=== PATIENT | male | born 1970 | race Caucasian/White ===

== ENCOUNTER 2018-02-17 21:32 | Emergency (ER) | payer MEDICARE ==
[~2018-02-17] VITALS: Ht 180.3 cm; Wt 65.8 kg
[~2018-02-17 21:32] MED LIST: DEPAKOTE 250MG250 M1 PO; DILANTIN100 MG; FLOMAX PO; KEFLEX500 MG PO; LEVAQUIN 750 M750 MG PO; MEDROLDOSEPACK PO; MOBIC7.5 M1 PO; NEURONTIN 300300 M1 PO; NORCO 5-325 TA1 EACH PO; ONFI10 MG PO; PEPCID20 MG PO; PERCOCET 10-321 EACH PO; PERCOCET 5-3251 EACH PO; PROAIR HFA8.5 GM; TESSALON PERLE100 MG PO; TRIAMCINOLONE 080 G3 TP; TRIAMCINOLONE A80 G2 TOP; VIMPAT1 EACH PO; ZOFRAN ODT4 MG PO
[2018-02-17 22:03] VITALS: BP 114/86
[2018-07-31] MEDS ORDERED: NORCO 5-325 TA1 EACH PO (08:23)
[2018-07-31] MEDS ORDERED: DILANTIN30 MG PO (13:02)
[2018-07-31] MEDS ORDERED: B-12500 MCG PO (13:07)
[2018-07-31] MEDS ORDERED: AMITRIPTYLINE H25 M2 PO (13:07)
[2018-07-31] MEDS ORDERED: D3 (13:08)
[2018-07-31] MEDS ORDERED: ALEVE220 MG PO (13:08)
== END 2018-02-17 22:04 | disposition home or self-care (01) ==
LOC: M.ERS 21:32
DX: R21 Rash and other nonspecific skin eruption (principal); Z88.8 Allergy status to other drugs, medicaments and biological substances; Z91.041 Radiographic dye allergy status

== ENCOUNTER 2018-03-18 14:24 | Emergency (ER) | payer MEDICARE ==
[~2018-03-18] VITALS: Ht 180.3 cm; Wt 70.3 kg
[2018-03-18 15:55] VITALS: BP 96/68
[2018-07-31] MEDS ORDERED: NORCO 5-325 TA1 EACH PO (08:23)
[2018-07-31] MEDS ORDERED: DILANTIN30 MG PO (13:02)
[2018-07-31] MEDS ORDERED: AMITRIPTYLINE H25 M2 PO (13:07)
[2018-07-31] MEDS ORDERED: B-12500 MCG PO (13:07)
[2018-07-31] MEDS ORDERED: D3 (13:08)
[2018-07-31] MEDS ORDERED: ALEVE220 MG PO (13:08)
== END 2018-03-18 16:00 | disposition home or self-care (01) ==
LOC: M.ERS 14:24
DX: Z71.1 Person with feared health complaint in whom no diagnosis is made (principal); Z90.89 Acquired absence of other organs; Z88.8 Allergy status to other drugs, medicaments and biological substances; Z91.041 Radiographic dye allergy status

== ENCOUNTER 2018-06-28 09:58 | Emergency (ER) | payer MEDICARE, MEDICAID ==
[~2018-06-28] VITALS: Ht 177.8 cm; Wt 68.0 kg
[2018-06-28] MEDS ORDERED: CENTRUM SILVER1 EAC2 PO (10:09)
[2018-06-28] MEDS ORDERED: VITAMIN C100 MG PO (10:09)
[2018-06-28] MEDS ORDERED: NORCO 5-325 TA1 EACH PO (10:33)
[2018-06-28 10:55] VITALS: BP 116/79
[2018-07-31] MEDS ORDERED: NORCO 5-325 TA1 EACH PO (08:23)
[2018-07-31] MEDS ORDERED: DILANTIN30 MG PO (13:02)
[2018-07-31] MEDS ORDERED: AMITRIPTYLINE H25 M2 PO (13:07)
[2018-07-31] MEDS ORDERED: B-12500 MCG PO (13:07)
[2018-07-31] MEDS ORDERED: D3 (13:08)
[2018-07-31] MEDS ORDERED: ALEVE220 MG PO (13:08)
== END 2018-06-28 10:56 | disposition home or self-care (01) ==
LOC: M.ERS 09:58
DX: M79.672 Pain in left foot (principal); Z91.041 Radiographic dye allergy status; Z91.048 Other nonmedicinal substance allergy status; Z98.890 Other specified postprocedural states

== ENCOUNTER → 2018-07-31 | Outpatient (CLI) | payer MEDICARE ==
[~2018-07-31] MED LIST changes: +ALEVE220 MG PO; +AMITRIPTYLINE H25 M2 PO; +B-12500 MCG PO; +CENTRUM SILVER1 EAC2 PO; +D3; +DILANTIN30 MG PO; +VITAMIN C100 MG PO
--- NOTE | ~2018-07-31 | H ---
[place] [address] HISTORY AND PHYSICAL Name: ADA WALTERS Room: [facility] Ayse.#: [id number] Admission: 07/31/18 Attend Phys: Lori Hopkins MD Discharge: Date of : 72 Report #: [id number] THIS REPORT FOR: //name// CC: Luís Hopkins DATE OF SERVICE: 07/31/2018 PRIMARY CARE PHYSICIAN: Luís Remy DO HISTORY: The patient is a 47-year-old gentleman who has been referred to the pain clinic for evaluation of foot pain. The patient states that he has been having pain and discomfort in his left and right foot. Pain has been problematic for about a year. States that he has been having pain for the left and right foot pain with a shocking sensation. States that he kicked his left foot on the bedpost and the right foot has been problematic. He has noticed some constant electrical shooting pain, which only goes away after he places pressure on the fourth toe and extends it. DICTATION ENDS HERE By: [id number]. Doroteo Hopkins MD /[facility]
--- NOTE | ~2018-07-31 | PAINCON ---
[address] [address] PAIN MANAGEMENT CONSULTATION Name: ADA WALTERS Room: [facility] Ayse.#: [id number] Admission: 07/31/18 Attend Phys: Lori Hopkins MD Discharge: Date of : 72 Report #: [id number] THIS REPORT FOR: //name// CC: Luís Hopkins PRIMARY CARE PHYSICIAN: Luís Remy DO DATE OF SERVICE: 07/31/2018 HISTORY: The patient is a 47-year-old gentleman who has been referred to the pain clinic for evaluation of foot pain. The patient states that he has been having pain and discomfort in his left and right foot. Pain has been problematic for about a year. States that he has been having pain for the left and right foot pain with a shocking sensation. States that he kicked his left foot on the bedpost and the right foot has been problematic. He has noticed some constant electrical shooting pain, which only goes away after he places pressure on the fourth toe and extends it. He states that it feels as though a battery is attached to his foot and current running into his toe. Notes that the pain improves somewhat when he holds on to the fourth toe and extends it. He is having some difficulty sleeping because of the pain. Pain radiates up his left leg across his groin area and down into the right foot. 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 He has undergone cortisone shots in this area and noted some benefit from that. He continues to use gabapentin and has used as much as 600 mg t.i.d. He has also used hydrocodone. CURRENT MEDICATIONS: Depakote 250 mg, gabapentin 300 mg, Dilantin 100 mg, Dilantin 30 mg, amitriptyline 25 mg. CBD oil to the affected toe. ALLERGIES: IODINE. PAST MEDICAL HISTORY: Anxiety, epilepsy, skin cancer of the lip, kidney stones, and chronic back pain. PAST SURGICAL HISTORY: Fractured ankle, collar bones repair, left wrist surgery, L5/L4 laminectomy, vagal nerve stimulator placement, vagal nerve stimulator removal, tonsillectomy. SOCIAL HISTORY: He is not working. REVIEW OF SYSTEMS: Generally good health, has noted some weight change, decrease in appetite, wears glasses, has had kidney stones continues to have back pain, history of convulsions/seizures with numbness and tingling [place] [address] PAIN MANAGEMENT CONSULTATION Name: ADA WALTERS [id number] Admission: 07/31/18 Attend Phys: Lori Hopkins MD Discharge: Date of : 72 Report #: [id number] PAIN CLINIC ASSESSMENT/OSTEOARTHRITIS: 1. The patient has some arthritic change in his low back area, has had back surgery. The patient is not been treated for rheumatoid arthritis. 2. Height 5 feet 10 inches, weight 150 pounds, BMI is 21. 3. Vital signs: Blood pressure 97/62, heart rate 64, respiratory rate 16, room air saturation is 98%, and temperature 97.7. 4. Pain intensity can be 6-7. 5. Fall risk. The patient has not fallen in the last 3 months. 6. Blood thinner. The patient is not on a blood thinning medication. 7. History of hypertension. The patient is not being treated for hypertension. 8. Opioid therapy greater than 6 weeks. The patient is using hydrocodone medication. 9. Risk assessment tool. 10. Functional assessment tool. 11. Recreational drug use. The patient denies use of recreational drugs at this juncture. 12. Tobacco: The patient denies use of tobacco. 13. Alcohol: The patient denies frequent use of alcoholic beverages. PHYSICAL EXAMINATION: GENERAL: The patient is a well-developed, well-nourished white male. Appears his stated age. He is alert and oriented x 3. Affect is appropriate. Speech is fluent. HEENT: Normocephalic, atraumatic. Extraocular muscles intact. Sclerae nonicteric. Mucous membranes are moist. NECK: Without adenopathy or JVD. LUNGS: Clear to auscultation. HEART: Regular rate. ABDOMEN: Nontender. Bowel sounds present. EXTREMITIES: Upper extremity muscle strength is judged to be 5/5 for the major muscle groups. Lower extremity muscle strength is judged to be 5/5 for the major muscle groups. Deep tendon reflexes are +1 at the biceps and trace at the knees bilaterally. Left foot shows normal skin texture, normal turgor. Color appears appropriate, capillary refill is about 2-2.5 seconds. Well-healed scar in the area of the fourth toe. The patient states that when he does feel the pain, it radiates from his foot up into the posterior portion of his leg across the groin area and down into the right leg as well. The patient states that if he has this pain and if he extends the fourth toe that the pain will soon subside. IMPRESSION: 1. History of chronic pain, left toe greater than a year duration. 2. Anxiety. 3. Epilepsy. 4. Skin cancer of the lip. 5. Kidney stones. [address] [place] [address] PAIN MANAGEMENT CONSULTATION Name: ADA WALTERS Room: [facility]#: [id number] Admission: 07/31/18 Attend Phys: Lori Hokpins MD Discharge: Date of : 72 Report #: [id number] 6. Chronic back pain. RECOMMENDATIONS: We discussed treatment option with the patient. We will have the patient try a TENS unit. He will go for instructions to the physical therapist. He will also try an application of 0.5% lidocaine to the affected toe. He will use RectiCare and apply it 2 to 3 times daily and especially if the patient notes pain and discomfort. He will return to the pain clinic where we will consider injection of the affected toe. As you could imagine this is somewhat of a unique presentation. Hopefully, with injections and medications, we can improve the patient's chronic pain problem. We would like to thank you for letting us participate in his care. We hope he continues to improve. By: [id number]. Doroteo Hopkins MD /[facility]let
== END ==
LOC: M.PC 04:56
DX: M79.671 Pain in right foot (principal); M79.672 Pain in left foot

== ENCOUNTER 2018-08-02 18:21 | Emergency (ER) | payer MEDICARE ==
[~2018-08-02] VITALS: Ht 177.8 cm; Wt 68.0 kg
[2018-08-02 19:21] VITALS: BP 107/68
== END 2018-08-02 19:22 | disposition home or self-care (01) ==
LOC: M.ERS 18:21
DX: F45.8 Other somatoform disorders (principal); Z91.041 Radiographic dye allergy status; Z88.8 Allergy status to other drugs, medicaments and biological substances; Z98.890 Other specified postprocedural states

== ENCOUNTER → 2018-08-28 | Outpatient (CLI) | payer MEDICARE ==
--- NOTE | ~2018-08-28 | PAINCON ---
[address] [address] PAIN MANAGEMENT CONSULTATION Name: WALTERSADA NBA Room: [facility] Usha#: [id number] Admission: 08/28/18 Attend Phys: Lori Hopkins MD Discharge: Date of : 72 Report #: [id number] THIS REPORT FOR: //name// CC: Luís Hopkins DATE OF SERVICE: 08/28/2018 HISTORY: The patient is a 47-year-old gentleman who has been seen in the Pain Clinic. He continues to have bilateral foot pain, left greater than right. As you may recall, the patient has had Brothers's neuroma on the third toe. He has had surgery on this toe. The patient states that he bumped his left fourth toe. Since that time, he has been having pain, which is quite problematic. States that it is a very severe pain that wakes him from sleep. Notes that the pain can gravitate and go up his left leg, across the groin and down involving the right foot. He feels that there is an electric current going to this area. Describes it as quite painful. Pain can be worse at night. The patient finds it difficult to score his pain level. He notes that the pain improves if he is having the discomfort and if he takes the distal portion of his fourth toe, if he straighten it out. The pain can decrease and he has less pain radiating up his leg across his groin and down into the contralateral side. Has used gabapentin. Was taking gabapentin 1800 mg daily. Did not notice a significant improvement in his pain. Does continue to find amitriptyline helpful. Also, has a seizure history and continues with Depakote 250 mg, Dilantin 100 mg and 30 mg of Dilantin. The patient has tried CBD oil, has not noticed a long-term effect on this discomfort. ALLERGIES: Intravenous iodine. CURRENT MEDICATIONS: Depakote 250 mg, gabapentin 300 mg, Dilantin 100 mg, Dilantin 30 mg, amitriptyline 25 mg, CBD oil to the affected toe. PAIN CLINIC ASSESSMENT/PQRS: 1. The patient does have a history of arthritic change in his low back. He has had surgery. He is not being treated for rheumatoid arthritis. 2. Height 5 feet 10 inches, weight 149 pounds, BMI is 21.4. 3. Vital signs: Blood pressure 110/70, heart rate 78, respiratory rate 18, room air saturation 97%, temperature 98. Pain intensity is difficult to quantify by the patient. 4. Fall risk. The patient has not fallen in the last 3 months. 5. Blood thinner. The patient is not on a blood thinning medication. 6. History of hypertension. The patient is not being treated for hypertension. 7. Opiate therapy greater than 6 weeks. The patient is using hydrocodone medication and has for the last 6 weeks. 8. Risk assessment tool. 9. Functional [place] [address] PAIN MANAGEMENT CONSULTATION Name: ADA WALTERS [id number] Admission: 08/28/18 Attend Phys: Lori Hopkins MD Discharge: Date of : 72 Report #: [id number] 10. Recreational drug use. The patient denies use of recreational drugs. 11. Tobacco: The patient denies use of tobacco. 12. Alcohol. The patient denies frequent use of alcoholic beverages. PHYSICAL EXAMINATION: GENERAL: The patient is a well-developed, well-nourished white male. Appears his stated age. He is alert and oriented x 3. His affect is appropriate. Speech is fluent. His is present. HEENT: Normocephalic, atraumatic. Extraocular eye muscles intact. Sclerae nonicteric. Mucous membranes are moist. NECK: Without adenopathy or JVD. LUNGS: Clear to auscultation without rhonchi or rales. HEART: Regular rate. ABDOMEN: Nontender. Bowel sounds present. EXTREMITIES: Upper extremity muscle strength judged to be 5/5 for the major muscle groups. Lower group muscle strength are 5/5. Deep tendon reflexes are +1 for the biceps in the upper extremity and trace for the patellar reflexes. The patient's foot shows normal skin color and normal turgor. Color appears appropriate. Capillary refill about 2-2.5 seconds. Well-healed scar in the area of the fourth toe near the area of the Brothers's neuroma removal. The patient is not having pain that is shooting up his leg, but still does have some discomfort. Has pain in the area of the fourth toe. Feels that there is soreness in the area of the distal phalanx and middle phalanx of the fourth toe, notes some soreness in the inner first pharyngeal ligament area of the DIP joints as well as the inner pharyngeal proximal ligaments of the PIP joints. IMPRESSION: 1. History of chronic pain in the left fourth toe greater than a year duration. 2. Anxiety. 3. Epilepsy. 4. Skin cancer of the lip. 5. Kidney stone. 6. Chronic back pain. RECOMMENDATIONS: We discussed the treatment options with the patient and his . I think that it would be reasonable to proceed with an injection in the area of the fourth right toe. The patient states that his pain is so problematic. It is to the point that he would like to have it removed. The patient states that when he extends his toe, he notes less pain and discomfort. The pain starts to decrease when it radiate up into his leg and across his groin down to the other foot. We have looked on [employer]. There is an item called a PedMW[employer]ix toe travelift operator. The patient will look at that item, he and his will try it. Hopefully, if he finds that this continues to keep his toe in a more straightened position, may will have less discomfort. We will proceed with an injection with cortisone and local anesthetic in the area to the left and the right side of the proximal pharynx of his left foot. Risks and [place] [address] PAIN MANAGEMENT CONSULTATION Name: SELENAADA ARANGO Room: [facility]#: [id number] Admission: 08/28/18 Attend Phys: Lori Hopkins MD Discharge: Date of : 72 Report #: [id number] procedure, which could include infection, worsening of pain, no improvement in pain, exacerbation of pain were discussed and the patient and his elects to proceed. PROCEDURE NOTE: The patient was taken to the procedure area. He was assisted in getting on the examination table. He was placed in the supine position. His left foot was scrubbed for 3 minutes with a Betadine scrub. Fluoroscopy was used to identify the left foot and note was made of the bone positioning and its anatomy. The left dorsal metatarsal area was identified. A 27-gauge needle was then advanced into the area after the skin had been treated with ____ chloride to desensitize this with the anesthetic ____ properties. Aspiration was negative. A total of 2.5 of 0.5% bupivacaine and 1% lidocaine mixture was injected with 20 mg triamcinolone. The medial portion of the tarsometatarsal area was treated in a like fashion. A 27-gauge needle was advanced. Aspiration was negative. The patient did not complain of nerve type pain during any of the procedure. Aspiration again was negative. A total of 2.5 mL of solution, which was 0.5% bupivacaine and 1% lidocaine with 20 mg Depo-Medrol was injected. The patient tolerated the procedure well. There were no complications. He will follow up in the future as needed. We would like to thank you for letting us participate in his care. Possibility of injection of a phenol solution in the future is an option. We would like to thank you for letting us participate in his care. He will follow up as needed. He will call us if he or his have any concerns. By: [id number]. Doroteo Hopkins MD /[facility]let
== END | disposition home or self-care (01) ==
LOC: M.PC 04:52
DX: M25.572 Pain in left ankle and joints of left foot (principal); M25.571 Pain in right ankle and joints of right foot; G89.29 Other chronic pain; F41.9 Anxiety disorder, unspecified; G40.909 Epilepsy, unspecified, not intractable, without status epilepticus; M54.5 Low back pain; Z85.828 Personal history of other malignant neoplasm of skin; Z87.442 Personal history of urinary calculi; Z91.041 Radiographic dye allergy status; Z79.899 Other long term (current) drug therapy; Z79.891 Long term (current) use of opiate analgesic

== ENCOUNTER → 2018-09-25 | Outpatient (CLI) | payer MEDICARE | END | disposition home or self-care (01) | LOC: M.PC 04:43 | DX: M79.18 Myalgia, other site (principal); Z79.899 Other long term (current) drug therapy; Z79.891 Long term (current) use of opiate analgesic; Z91.041 Radiographic dye allergy status ==

== ENCOUNTER 2019-10-09 17:25 | Emergency (ER) | payer MEDICARE ==
[~2019-10-09] VITALS: Ht 177.8 cm; Wt 77.1 kg
[2019-10-09 18:31] LABS: URINE BILIRUBIN NEGATIVE (Negative); URINE BLOOD NEGATIVE (Negative); URINE CLARITY CLEAR; URINE COLOR YELLOW; URINE GLUCOSE-RANDOM NEGATIVE (Negative); URINE KETONES NEGATIVE (Negative); URINE LEUKOCYTES-REFLEX NEGATIVE (Negative); URINE NITRITE-REFLEX NEGATIVE (Negative); URINE PROTEIN NEGATIVE (Negative); URINE SPECIFIC GRAVITY >= 1.030 (1.005-1.030); URINE UROBILINOGEN 0.2 E.U./dl (0.2-1.0)
[2019-10-09 18:38] LABS: AMP/METHAMP Negative (Negative); BARBITURATES Negative (Negative); BENZODIAZEPINES Negative (Negative); COCAINE Negative (Negative); METHADONE Negative (Negative); OPIATES Negative (Negative); PCP Negative (Negative); THC POSITIVE (Negative)
[2019-10-09 18:42] LABS: ABSOLUTE BASOPHILS 0.1 thou/uL (0.0-0.2); ABSOLUTE EOSINOPHILS 0.4 thou/uL (0.0-0.7); ABSOLUTE LYMPHOCYTES 1.8 thou/uL (0.8-5.3); ABSOLUTE MONOCYTES 0.9 thou/uL (0.0-1.2); BASOPHILS 0.7 %; EOSINOPHILS 4.4 %; HEMATOCRIT 45.6 % (42.0-52.0); HEMOGLOBIN 15.6 gm/dL (14.0-18.0); LYMPHOCYTES 17.6 %; MCH 30.5 pg (26.0-34.0); MCHC 34.2 g/dL (28.0-37.0); MCV 89.2 fL (80.0-100.0); MONOCYTES 8.9 %; MPV 8.8 fl. (7.2-11.1); NUCLEATED RBCS 0 /100WBC; PLATELET COUNT* 241 thou/uL (150-400); POLYS 68.4 %; RBC 5.11 mil/uL (4.50-6.00); WBC 10.2 thou/uL (4.0-11.0)
[2019-10-09 18:48] LABS: CALCIUM 8.6 mg/dL (8.5-10.1); CREATININE 1.1 mg/dL (0.6-1.3); POTASSIUM 4.5 mmol/L (3.5-5.1)
[2019-10-09 18:53] LABS: TOTAL BILIRUBIN 0.2 mg/dL (<0.1-1.0); TOTAL PROTEIN 6.8 g/dL (6.4-8.2)
[2019-10-09 18:57] LABS: ACETAMINOPHEN < 2 ug/mL (10-30); ALCOHOL < 10 mg/dL (<10); SALICYLATE < 2.8 mg/dL (2.8-20.0)
[2019-10-09 22:53] VITALS: BP 135/104
== END 2019-10-09 22:48 | disposition still patient (30) ==
LOC: M.ERS 17:25
PROVIDERS: Emergency Medicine Emergency Medical Services
DX: F32.9 Major depressive disorder, single episode, unspecified (principal); G89.29 Other chronic pain; Z90.89 Acquired absence of other organs; Z91.041 Radiographic dye allergy status; Z88.8 Allergy status to other drugs, medicaments and biological substances; Z79.899 Other long term (current) drug therapy

== ENCOUNTER 2019-11-30 10:12 | Emergency (ER) | payer MEDICARE ==
[~2019-11-30] VITALS: Ht 180.3 cm; Wt 77.1 kg
[2019-11-30 11:30] VITALS: BP 133/97
== END 2019-11-30 11:30 | disposition home or self-care (01) ==
LOC: M.ERS 10:12
DX: S93.492A Sprain of other ligament of left ankle, initial encounter (principal); S93.692A Other sprain of left foot, initial encounter; Z90.89 Acquired absence of other organs; Z98.890 Other specified postprocedural states; Z91.041 Radiographic dye allergy status; Z91.048 Other nonmedicinal substance allergy status; W01.0XXA Fall on same level from slipping, tripping and stumbling without subsequent striking against object, initial encounter; Y92.008 Other place in unspecified non-institutional (private) residence as the place of occurrence of the external cause; Y93.89 Activity, other specified; Y99.8 Other external cause status